=== PATIENT | female | born 1990 | race Caucasian/White ===

== ENCOUNTER 2023-01-04 15:30 | Inpatient (IN) | payer BC, OTHER ==
[2023-01-04] MEDS: ELECTROLYTE-148 SOLN 1,000 ML IV SCH (17:00)
[2023-01-04 18:17] VITALS: BMI 40.1
[2023-01-04] MEDS ORDERED: AMPICILLIN - 2 GM in SODIUM CHLORIDE 100 ML IVPB ONE (18:28)
[2023-01-04 18:31] LABS: INR 0.92 (0.83-1.09); PROTHROMBIN TIME (PATIENT) 10.7 SEC (9.7-13.0)
[2023-01-04 18:33] LABS: BASO % 0.4 % (0-2.0); EOS % 1.3 % (0-4.5); LYMPH % 21.2 % (8-40); MCH 26.3 pg (25.7-33.7); MCHC 32.3 g/dl (32.0-36.0); MEAN CELL VOLUME 81.4 fl (80-96); MONO % 6.6 % (3.8-10.2); NEUT % 70.5 % (42.8-82.8); PLATELET COUNT 326 10^3/uL (134-434); RBC 4.17 M/mm3 (3.60-5.2); RDW 14.6 % (11.6-15.6); WHITE BLOOD COUNT 11.3 K/mm3 (4.0-10.0)
[2023-01-04 18:34] LABS: ACTIVATED PTT 28.7 SECONDS (25.2-36.5)
[2023-01-04] MEDS ORDERED: OXYTOCIN 30 UNITS in 0.9% NS 30 UNIT/500 ML INFUS.BAG IVPB ONE (18:38)
[2023-01-04] MEDS ORDERED: AMPICILLIN SODIUM 2 GM VIAL ONE (18:38)
[2023-01-04 18:41] LABS: POTASSIUM 4.4 mmol/L (3.5-5.1)
[2023-01-04 18:42] LABS: CALCIUM 8.9 mg/dL (8.5-10.1)
[2023-01-04 18:43] LABS: BLOOD UREA NITROGEN 10.5 mg/dL (7-18)
[2023-01-04 18:47] LABS: CREATININE 0.6 mg/dL (0.55-1.3)
[2023-01-04] MEDS: OXYTOCIN 30 UNITS in 0.9% NS 30 UNIT/500 ML INFUS.BAG IVPB SCH (18:49)
[2023-01-04] MEDS ORDERED: SODIUM CHLORIDE 100 ML IVPB ONE (22:31)
[2023-01-04] MEDS ORDERED: AMPICILLIN SODIUM 1 GM VIAL ONE (22:31)
[2023-01-04] MEDS: AMPICILLIN - 1 GM in SODIUM CHLORIDE 100 ML IVPB SCH (22:35)
[2023-01-05] MEDS ORDERED: FENTANYL/BUPIVACAINE/NS/PF - PCEA - 50 ML DISP.SYRIN EP ONE ×2 (00:37→04:57)
[2023-01-05] MEDS ORDERED: FENTANYL CITRATE/PF 50 MCG/ML VIAL ONE (00:42)
[2023-01-05] MEDS: FENTANYL/BUPIVACAINE/NS/PF - PCEA - 50 ML DISP.SYRIN EP SCH ×2 (01:00→05:00)
[2023-01-05] MEDS: ELECTROLYTE-148 SOLN 1,000 ML IV SCH ×2 (01:15→22:17)
[2023-01-05] MEDS ORDERED: NALOXONE HCL 0.4 MG/ML VIAL IVPUSH PRN (01:33)
[2023-01-05] MEDS ORDERED: AMPICILLIN SODIUM 1 GM VIAL ONE ×2 (02:34→06:26)
[2023-01-05] MEDS ORDERED: SODIUM CHLORIDE 100 ML IVPB ONE ×2 (02:34→06:26)
[2023-01-05] MEDS: AMPICILLIN - 1 GM in SODIUM CHLORIDE 100 ML IVPB SCH ×3 (02:35→22:16)
[2023-01-05] MEDS ORDERED: OXYTOCIN 20 UNITS in 0.9% NS 20 UNIT/1,000 ML INFUS.BAG IV ONE (06:45)
[2023-01-05] MEDS ORDERED: LIDOCAINE HCL 1% PRESERVATIVE FREE - 30ML VIAL ONE (06:45)
[2023-01-05] MEDS ORDERED: WITCH HAZEL 50% (TUCKS) 40 PAD/JAR PAD TP PRN (07:57)
[2023-01-05] MEDS ORDERED: ACETAMINOPHEN 325 MG TABLET (FP) PO PRN (07:57)
[2023-01-05] MEDS ORDERED: BISACODYL 10 MG SUPP.RECT RC PRN (07:57)
[2023-01-05] MEDS ORDERED: oxyCODONE HCL 5 MG TABLET PO PRN (07:57)
[2023-01-05] MEDS ORDERED: BENZOCAINE 28 GM HEMORRHOIDAL OINTMENT TP PRN (07:57)
[2023-01-05] MEDS ORDERED: METHYLERGONOVINE MALEATE 0.2 MG/1 ML AMP IM PRN (07:57)
[2023-01-05] MEDS ORDERED: IBUPROFEN 600 MG TABLET (FP) PO PRN (07:57)
[2023-01-05] MEDS ORDERED: BENZOCAINE 20% 57 GM BOTTLE TP PRN (07:57)
[2023-01-05] MEDS ORDERED: OXYTOCIN 20 UNITS in 0.9% NS 20 UNIT/1,000 ML INFUS.BAG IV SCH (08:00)
[2023-01-05] MEDS: PRENATAL VITAMINS W/ FOLIC ACID TABLET (FP) PO SCH (11:37)
[2023-01-05] MEDS: OXYTOCIN 30 UNITS in 0.9% NS 30 UNIT/500 ML INFUS.BAG IVPB SCH (22:16)
[2023-01-06 07:16] LABS: BASO % 0.2 % (0-2.0); EOS % 1.2 % (0-4.5); HEMATOCRIT 29.1 % (32.4-45.2); HEMOGLOBIN 9.7 GM/dL (10.7-15.3); LYMPH % 24.7 % (8-40); MCH 27.2 pg (25.7-33.7); MCHC 33.2 g/dl (32.0-36.0); MEAN CELL VOLUME 81.8 fl (80-96); MEAN PLT VOLUME 8.5 fl (7.5-11.1); MONO % 6.2 % (3.8-10.2); NEUT % 67.7 % (42.8-82.8); PLATELET COUNT 268 10^3/uL (134-434); RBC 3.56 M/mm3 (3.60-5.2); RDW 14.8 % (11.6-15.6)
[2023-01-06 07:37] LABS: POC NITRAZINE POS
[2023-01-06] MEDS: PRENATAL VITAMINS W/ FOLIC ACID TABLET (FP) PO SCH (09:06)
[2023-01-06] MEDS ORDERED: FLU VACC QS2022-23(6MOS UP)/PF 60 MCG/0.5 ML SYRINGE IM ONE (10:00)
[2023-01-06] MEDS: DIPHTH,PERTUSS(ACELL),TET 0.5 ML DISP.SYRIN IM ONE ×2 (12:18→12:33)
[2023-01-06] MEDS ORDERED: SENNOSIDES/DOCUSATE COMBO (SENNA PLUS) TABLET (UD) PO PRN (22:00)
[2023-01-07] MEDS: PRENATAL VITAMINS W/ FOLIC ACID TABLET (FP) PO SCH (09:35)
[2023-01-07 10:47] VITALS: BP 134/88; PULSE 78; RESP 16; TEMP 98.6
== END 2023-01-07 13:20 | disposition home or self-care (01) | DRG 807 ==
LOC: JDEL 15:30 → JLDR 15:31 → J3W 01-05 10:30
PROVIDERS: ADMIT Obstetrics & Gynecology; ATTEND Obstetrics & Gynecology
PROC: 10E0XZZ Delivery of Products of Conception, External Approach (ICD-10-PCS; principal; 2023-01-05)
PROC: 0HQ9XZZ Repair Perineum Skin, External Approach (ICD-10-PCS; 2023-01-05)
PROC: 0W8NXZZ Division of Female Perineum, External Approach (ICD-10-PCS; 2023-01-05)
DX: O70.0 First degree perineal laceration during delivery (principal); O99.214 Obesity complicating childbirth; O99.824 Streptococcus B carrier state complicating childbirth; O42.92 Full-term premature rupture of membranes, unspecified as to length of time between rupture and onset of labor; Z3A.38 38 weeks gestation of pregnancy; Z37.0 Single live birth
CPT/HCPCS: 36415; 80048; 83986-QW; 85025; 85610; 85730; 86780; 86850; 86900; 86901; 90715; C9803-CS; G0008; Q2036; U0003; U0005